=== PATIENT | female | born 1940 ===

== ENCOUNTER 2020-10-03 14:11 | Inpatient (IN) | payer OTHER ==
--- OUTSIDE RECORDS SUMMARY | 2020-10-03 14:14 | XMS REPORT | Continuity of Care Document ---
:1940 Author Organization [facility] t Address [address] [place] [address] Care Team Providers Name Role Phone Delvin SULLIVAN Attending Clinician Jena Melchor MD Attending Clinician Doctor Unassigned, Name Attending Clinician Unavailable Problems This patient has no known problems. Allergies, Adverse Reactions, Alerts This patient has no known allergies or adverse reactions. Medications This patient has no known medications. Procedures This patient has no known procedures. Encounters Start End Encounter Admission Attending Care Care Encounter Source Date/Time Date/Time Type Type Clinicians Facility Department ID 2020-09-10 2020-09-10 Refill COLLEEN Hargrove [id number] 00:00:00 00:00:00 Sloane Garcia [id number] [place] [id number] Profjanie [id number] [address] 2020-09-06 2020-09-06 Refill COLLEEN Melchor [id number] 00:00:00 00:00:00 Kalani Garcia [id number] [place] [id number] Profjanie [id number] [address] 2020-08-20 2020-08-20 Orders Doctor TABOR [id number] 00:00:00 00:00:00 Only Unassigned, JODIE [id number] [place] [facility] [id number] 2020-08-12 2020-08-12 Orders Doctor LEANDER [id number] 00:00:00 00:00:00 Only Unassigned, JODIE [id number] [place] [facility] [id number] 2020-07-30 2020-07-30 Office COLLEEN Melchor [id number] 14:08:15 15:33:36 Visit Kalani Garcia [id number] [place] [id number] [place] [id number] [address] Results This patient has no known results.
[2020-10-03 15:49] LABS: Protime INR 1.24
--- NOTE | 2020-10-03 16:06 | RAD REPORT ---
EXAM DESCRIPTION: RAD - Chest Single View - 10/03/2020 3:56 pm CLINICAL HISTORY: DYSPNEA Chest pain. COMPARISON: CT-RAD THERAPY FLD PLACE-CHEST dated 06/18/2020; Hip Left 2 View dated 07/23/2020; Rad Thera py Fld Place Chest dated 11/20/2015; Rad Therapy Fld Place Chest dated 10/10/2015 FINDINGS: Portable technique limits examination quality. Asymmetric pulmonary opacities are present, greater on the right. This may represent pulmonary infect ion. The heart is normal in size. Several small lucent bone lesions present.
[2020-10-03 16:37] LABS: Absolute Lymphocytes (CBC) 0.5 K/uL (0.7-4.9); Basophils % 0.8 % (0-1.3); Hematocrit 31.9 % (36.0-45.0); Lymphocytes % 6.8 % (15.3-44.8); RBC Red Blood Cell Count 3.32 M/uL (3.86-4.86)
[2020-10-03 16:40] LABS: Albumin 2.7 g/dL (3.4-5.0); Alkaline Phosphatase 158 U/L (45-117); BUN Blood Urea Nitrogen 15 mg/dL (7-18); Bicarbonate 21 mmol/L (21-32); Bilirubin Direct 0.2 mg/dL (0-0.2); Bilirubin Total 0.6 mg/dL (0.2-1.0); Ferritin 468.2 ng/mL (8-388); Glucose Level 119 mg/dL (74-106); Magnesium 2.2 mg/dL (1.8-2.4); NT PRO-BNP 630 pg/mL (<450); Potassium 3.8 mmol/L (3.5-5.1); Protein, Total 7.7 g/dL (6.4-8.2); Sodium Level 134 mmol/L (136-145); Troponin (Emerg Dept Use Only) < 0.02 ng/mL (0.0-0.045)
[2020-10-03 16:46] LABS: ALT/SGPT 325 U/L (12-78); AST/SGOT 438 U/L (15-37)
--- NOTE | 2020-10-03 17:08 | RAD REPORT ---
EXAM DESCRIPTION: US - Extrem Venous W Compress Wilver - 10/03/2020 5:01 pm CLINICAL HISTORY: SWELLING Bilateral leg edema and swelling. COMPARISON: No comparisons TECHNIQUE: Real-time sonographic interrogation of the left and right lower extremity deep venous sys tems was performed. FINDINGS: Normal compressibility, flow augmentation, phasic flow and spontaneous flow is identified in both the left and right lower extremity deep venous systems. IMPRESSION: No sonographic evidence of left or right lower extremity deep venous thrombosis.
--- NOTE | 2020-10-03 17:29 | RAD REPORT ---
EXAM DESCRIPTION: CT - Chest For Pe Angio - 10/03/2020 5:17 pm CLINICAL HISTORY: Chest pain. SOB COMPARISON: CT-RAD THERAPY FLD PLACE-CHEST dated 06/18/2020 TECHNIQUE: CT angiogram of the pulmonary arteries was performed with MIP. All CT scans are performed using dose optimization technique as appropriate and may include automated exposure control or mA/KV adjustment according to patient size. FINDINGS: No evidence of pulmonary thromboembolism. No acute aortic finding demonstrated. There is extensive alveolar pulmonary infiltrate present, greater on the right, suspicious for underl jorge COVID-19 infection. No significant pericardial or pleural fluid. Multiple bone lesions are present scattered throughout the osseous skeleton compatible with bony meta static disease. Significant pathologic compression deformities are seen lower thoracic spine. IMPRESSION: No evidence of pulmonary thromboembolism. Extensive findings suspicious for COVID-19 infection are present, more severe on the right.
--- NOTE | 2020-10-03 17:34 | RAD REPORT ---
EXAM DESCRIPTION: CTAbdomen Pelvis W Contrast - 10/03/2020 5:18 pm CLINICAL HISTORY: Abdominal pain. elevated liver enzymes COMPARISON: Chest For Pe Angio dated 10/03/2020; CT-RAD THERAPY FLD PLACE-CHEST dated 06/18/2020; Rad T herapy Fld Place Chest dated 11/20/2015; Rad Therapy Fld Place Chest dated 10/10/2015 TECHNIQUE: Biphasic CT imaging of the abdomen and pelvis was performed with 100 ml non-ionic IV cont rast. All CT scans are performed using dose optimization technique as appropriate and may include automated exposure control or mA/KV adjustment according to patient size. FINDINGS: Extensive basilar lung opacities are present, greater on the right which are suspicious fo r lung infection. Several small low-density hepatic lesions are present particularly in the right lobe of the liver, th e largest measuring 13 mm. No intra or extrahepatic biliary tree dilatation. The spleen, pancreas, ad renal glands and kidneys are within normal limits. No bowel obstruction, free air, free fluid or abscess. Prominent sigmoid diverticulosis coli is pres ent without diverticulitis. No evidence of significant lymphadenopathy. Extensive bony metastatic disease again seen. Pathologic compression deformities affect the thoracolu mbar junction, with particularly notable high-grade fracture T12 resulting in moderate central canal stenosis. IMPRESSION: Several small low-density liver lesions are present which are nonspecific. Recommend fol low-up MRI liver protocol for further evaluation. Extensive basilar lung opacities, greater on the right, likely representing a significant pulmonary i nfection. Bony metastatic disease is present with pathologic compression fractures at the thoracolumbar junctio n. T12 fracture results in moderately severe canal stenosis. Advanced sigmoid diverticulosis coli without diverticulitis.
--- NOTE | 2020-10-03 18:27 | ER ---
Nurse's Notes [facility] Name: Kathleen Velázquez Age: 80 yrs Sex: Female : 1940 Arrival Date: 10/03/2020 Time: 14:12 Bed 16 Private MD: Diagnosis: Pneumonia due to other specified infectious organisms;Hypoxemia Presentation: 10/03 14:24 Chief complaint: Patient states: Low O2- Sent over from the [place] center. Coronavirus kg screen: Client denies travel out of the [place] in the last 14 days. At this time, unable to obtain information related to travel outside the [place] Coronavirus screen: Client presents with at least one sign or symptom that may indicate coronavirus-19. Standard/surgical mask placed on the client. Provider contacted for isolation considerations. Ebola Screen: Patient negative for fever greater than or equal to 101.5 degrees Fahrenheit, and additional compatible Ebola Virus Disease symptoms Patient denies exposure to infectious person. Patient denies travel to an Ebola-affected area in the 21 days before illness onset. Initial Sepsis Screen: Does the patient meet any 2 criteria? No. Patient's initial sepsis screen is negative. Does the patient have a suspected source of infection? No. Patient's initial sepsis screen is negative. Risk Assessment: Do you want to hurt yourself or someone else? Patient reports no desire to harm self or others. Onset of symptoms was October 03, 2020. 14:24 Method Of Arrival: Wheelchair kg 14:24 Acuity: AWILDA 3 kg Triage Assessment: 14:34 General: Appears in no apparent distress. Behavior is calm, cooperative, appropriate kg for age, quiet. Historical: - Allergies: 14:26 PENICILLINS; kg - Home Meds: 14:26 amlodipine 10 mg tab 1 tab once daily [Active]; levothyroxine 75 mcg tab 1 tab once kg daily [Active]; omeprazole 20 mg Oral cpDR 1 cap once daily [Active]; aspirin 81 mg Oral TbEC 1 tab once daily [Active]; Zyrtec 10 mg Oral cap 10 mg daily [Active]; B12 Active 1,000 mcg oral chew daily [Active]; multivitamin oral cap daily [Active]; calcium carbonate Oral [Active]; Vitamin D Oral [Active]; Probiotic oral [Active]; Flonase 50 mcg/actuation Nasal spsn 1 spray once daily [Active]; sertraline 100 mg oral tab 1 tab once daily [Active]; Ibrance 100 mg oral tab 1 tab once daily [Active]; BuSpar 15 mg Oral tab 1 tab [Active]; Lipitor 20 mg Oral tab 1 tab once daily [Active]; Cozaar 100 mg Oral tab 1 tab [Active]; 14:34 acetaminophen-codeine 300 mg-30 mg /12.5 mL Oral soln [Active]; kg - PMHx: 14:34 thyroid; Hypertensive disorder; Anxiety; Hypercholesterolemia; CA- Breast, bone; kg Depressive disorder; - PSHx: 14:34 Total abdominal hysterectomy; Left hip sx; kg - Immunization history:: Adult Immunizations not up to date, Client reports having NOT received the Covid vaccine. - Social history:: Smoking status: Patient/guardian denies using tobacco, but has a distant history of tobacco abuse. Screenin:00 Abuse screen: Denies threats or abuse. Denies injuries from another. Nutritional tr6 screening: No deficits noted. Tuberculosis screening: No symptoms or risk factors identified. Fall Risk Fall in past 12 months (25 points). Assessment: 14:38 Reassessment: Mariaa Abdullahi Granddaughter is waiting in the car . kg 14:58 General: Appears in no apparent distress. well groomed, Behavior is calm, cooperative, tr6 appropriate for age. Pain: Denies pain. Neuro: No deficits noted. Level of Consciousness is awake, alert, obeys commands, Oriented to person, place, time, situation, Appropriate for age. Cardiovascular: Rhythm is regular. Respiratory: Reports shortness of breath at rest on exertion Airway is patent Respiratory effort is even, unlabored, Respiratory pattern is regular, Breath sounds are clear. GI: No deficits noted. : No deficits noted. EENT: No deficits noted. Derm: No deficits noted. Musculoskeletal: No deficits noted. Vital Signs: 14:24 Resp 20; Pulse Ox 85% on R/A; Weight 63.5 kg (R); Height 5 ft. 0 in. (152.40 cm) (R); kg Pain 0/10; 14:35 Temp 98.3; Pulse Ox 95% on 4 lpm NC; kg 15:09 BP 130 / 67; Pulse 79; Resp 17; Temp 98.2(TE); Pulse Ox 93% on 3 lpm NC; mh5 19:51 BP 118 / 86; Pulse 92; Resp 20; Temp 98.3; Pulse Ox 95% on 2 lpm NC; ch4 14:24 Body Mass Index 27.34 (63.50 kg, 152.40 cm) kg ED Course: 14:12 Patient arrived in ED. ds1 14:26 Triage completed. kg 14:34 Arm band placed on. kg 14:58 Daxa Rojas, RN is Primary Nurse. tr6 15:00 Patient has correct armband on for positive identification. Placed in gown. Bed in low tr6 position. Call light in reach. Side rails up X 1. cardiac monitor on. Pulse ox on. NIBP on. Door closed. Noise minimized. Visitors limited. Lights dimmed. Moved to private room. Warm blanket given. Diet: Patient is NPO. 15:00 No provider procedures requiring assistance completed. Patient maintains SpO2 tr6 saturation greater than 95% on room air. 15:08 Polo Jhaveri PA is PHCP. cp 15:08 Smooth Powell MD is Attending Physician. cp 15:08 Side rails up X2. Warm blanket given. Pillow given. mh5 15:14 Inserted saline lock: 20 gauge in left antecubital area, using aseptic technique. Blood tr6 collected. 15:55 XRAY Chest (1 view) In Process Unspecified. EDMS 17:01 US Extremity Venous W Compression Wilver In Process Unspecified. EDMS 17:18 CT Chest For PE Angio In Process Unspecified. EDMS 17:18 CT Abd/Pelvis - IV Contrast Only In Process Unspecified. EDMS 18:26 Juan Palacios MD is Hospitalizing Provider. cp 20:14 Basic Metabolic Panel Sent. ch4 20:14 CBC with Diff Sent. ch4 20:14 Magnesium Sent. ch4 20:14 LFT's Sent. ch4 20:14 NT PRO-BNP Sent. ch4 20:14 PT-INR Sent. ch4 Administered Medications: 19:39 Drug: LevaQUIN (levofloxacin) 750 mg Volume: 150 ml; Route: IVPB; Infused Over: 90 ch4 mins; Site: right antecubital; 19:39 Drug: NS 0.9% 250 ml Route: IV; Rate: bolus; Site: right antecubital; ch4 19:39 Drug: NS 0.9% 500 ml Route: IV; Rate: 75 ml/hr; Site: right antecubital; ch4 Outcome: 18:27 Decision to Hospitalize by Provider. sd 10/05 20:37 Patient left the ED. wagner Signatures: Dispatcher [employer] EDKY Alondra Sultana ds1 Polo Jhaveri PA PA cp Martinez, Maria [facility] Sonam Herron RN RN Daxa Rojas RN RN 6 Maricruz Mcmanus RN RN Norah Porter RN RN ch4 Corrections: (The following items were deleted from the chart) 10/03 14:42 14:24 Pulse Ox 85% RA; kg kg
--- NOTE | 2020-10-03 18:28 | EDPHYS ---
Physician Documentation [facility] Name: Kathleen Velázquez Age: 80 yrs Sex: Female : 1940 Arrival Date: 10/03/2020 Time: 14:12 Bed 16 Private MD: ED Physician Smooth Powell HPI: 10/03 15:25 This 80 yrs old Unknown Female presents to ER via Wheelchair with complaints of cp Shortness Of Breath. 15:25 The patient has shortness of breath at rest. Onset: The symptoms/episode began/occurred cp gradually. Duration: The symptoms are continuous, and are steadily getting worse. Associated signs and symptoms: Pertinent negatives: chest pain, productive cough, diaphoresis, dizziness, fever, nausea, vomiting. Severity of symptoms: in the emergency department the symptoms have improved mildly. Historical: - Allergies: 14:26 PENICILLINS; kg - Home Meds: 14:26 amlodipine 10 mg tab 1 tab once daily [Active]; levothyroxine 75 mcg tab 1 tab once kg daily [Active]; omeprazole 20 mg Oral cpDR 1 cap once daily [Active]; aspirin 81 mg Oral TbEC 1 tab once daily [Active]; Zyrtec 10 mg Oral cap 10 mg daily [Active]; B12 Active 1,000 mcg oral chew daily [Active]; multivitamin oral cap daily [Active]; calcium carbonate Oral [Active]; Vitamin D Oral [Active]; Probiotic oral [Active]; Flonase 50 mcg/actuation Nasal spsn 1 spray once daily [Active]; sertraline 100 mg oral tab 1 tab once daily [Active]; Ibrance 100 mg oral tab 1 tab once daily [Active]; BuSpar 15 mg Oral tab 1 tab [Active]; Lipitor 20 mg Oral tab 1 tab once daily [Active]; Cozaar 100 mg Oral tab 1 tab [Active]; 14:34 acetaminophen-codeine 300 mg-30 mg /12.5 mL Oral soln [Active]; kg - PMHx: 14:34 thyroid; Hypertensive disorder; Anxiety; Hypercholesterolemia; CA- Breast, bone; kg Depressive disorder; - PSHx: 14:34 Total abdominal hysterectomy; Left hip sx; kg - Immunization history:: Adult Immunizations not up to date, Client reports having NOT received the Covid vaccine. - Social history:: Smoking status: Patient/guardian denies using tobacco, but has a distant history of tobacco abuse. ROS: 15:30 Constitutional: Negative for body aches, chills, fever, poor PO intake. cp 15:30 Eyes: Negative for injury, pain, redness, and discharge. cp 15:30 ENT: Negative for ear pain, sore throat, difficulty swallowing, difficulty handling secretions. 15:30 Cardiovascular: Negative for chest pain, edema, palpitations. 15:30 Respiratory: Positive for shortness of breath, at rest. Negative for cough, wheezing. 15:30 Abdomen/GI: Negative for abdominal pain, nausea, vomiting, and diarrhea, black/tarry stool, rectal bleeding. 15:30 Skin: Negative for rash. 15:30 Neuro: Negative for dizziness, headache, numbness, syncope, weakness. 15:30 All other systems are negative. Exam: 15:33 Constitutional: The patient appears in no acute distress, alert, awake, cp non-diaphoretic, non-toxic, well developed, well nourished. 15:33 Head/Face: Normocephalic, atraumatic. cp 15:33 Eyes: Periorbital structures: appear normal, Conjunctiva: normal, no exudate, no injection, Sclera: no appreciated abnormality, Lids and lashes: appear normal, bilaterally. 15:33 ENT: External ear(s): are unremarkable, Nose: is normal, Mouth: Lips: moist, Oral mucosa: pink and intact, moist, Posterior pharynx: Airway: no evidence of obstruction, patent. 15:33 Neck: ROM/movement: is normal, is supple, without pain, no range of motions limitations, no meningismus. 15:33 Chest/axilla: Inspection: normal, Palpation: is normal, no crepitus, no tenderness. 15:33 Cardiovascular: Rate: normal, Rhythm: regular, Edema: is not appreciated, JVD: is not appreciated. 15:33 Respiratory: the patient does not display signs of respiratory distress, Respirations: normal, no use of accessory muscles, no retractions, labored breathing, is not present, Breath sounds: decreased breath sounds, are not appreciated, stridor, is not appreciated. 15:33 Abdomen/GI: Inspection: abdomen appears normal, Palpation: abdomen is soft and non-tender, in all quadrants. 15:33 Back: pain, is absent, ROM is normal. 15:33 Neuro: Orientation: to person, situation, Mentation: able to follow commands, Motor: moves all fours, strength is normal. 16:35 ECG was reviewed by the Attending Physician. cp Vital Signs: 14:24 Resp 20; Pulse Ox 85% on R/A; Weight 63.5 kg (R); Height 5 ft. 0 in. (152.40 cm) (R); kg Pain 0/10; 14:35 Temp 98.3; Pulse Ox 95% on 4 lpm NC; kg 15:09 BP 130 / 67; Pulse 79; Resp 17; Temp 98.2(TE); Pulse Ox 93% on 3 lpm NC; mh5 19:51 BP 118 / 86; Pulse 92; Resp 20; Temp 98.3; Pulse Ox 95% on 2 lpm NC; ch4 14:24 Body Mass Index 27.34 (63.50 kg, 152.40 cm) kg MDM: 15:17 Patient medically screened. cp 16:00 Differential diagnosis: Bronchitis CHF exacerbation, Chronic Obstructive Pulmonary cp Disease pneumonia, Pneumothorax pulmonary edema, Pulmonary Embolism Sepsis Unstable Angina. 18:10 Data reviewed: vital signs, nurses notes, lab test result(s), EKG, radiologic studies, cp CT scan, plain films. 18:10 Test interpretation: by ED physician or midlevel provider: ECG, plain radiologic cp studies. 18:20 Counseling: I had a detailed discussion with the patient and/or guardian regarding: the cp historical points, exam findings, and any diagnostic results supporting the discharge/admit diagnosis, lab results, radiology results, the need for further work-up and treatment in the hospital. 18:20 Physician consultation: Roc BUCHANAN was contacted at 18:20, regarding admission, cp to the telemetry unit. patient's condition. 10/03 15:17 Order name: Basic Metabolic Panel cp 10/03 15:17 Order name: CBC with Diff cp 10/03 15:17 Order name: LFT's cp 10/03 15:17 Order name: Magnesium cp 10/03 15:17 Order name: NT PRO-BNP cp 10/03 15:17 Order name: PT-INR cp 10/03 15:17 Order name: Troponin (emerg Dept Use Only); Complete Time: 16:56 cp 10/03 15:17 Order name: Influenza Screen (a \\T\\ B); Complete Time: 16:23 cp 10/03 15:17 Order name: Urine Microscopic Only 10/03 15:17 Order name: CRP; Complete Time: 16:56 cp 10/03 16:56 Interpretation: Abnormal: C-REACTIVE PROT 169.00. cp 10/03 15:17 Order name: Ferritin; Complete Time: 16:56 cp 10/03 15:17 Order name: D-Dimer; Complete Time: 20:10 cp 10/03 16:01 Interpretation: Abnormal: D-DIMER 2486. 10/03 15:18 Order name: Basic Metabolic Panel; Complete Time: 16:56 EDMS 10/03 16:56 Interpretation: Normal except: NA 134; GLUC 119; GFR 73. 10/03 15:18 Order name: CBC with Automated Diff EDMS 10/03 16:42 Interpretation: Normal except: RBC 3.32; HGB 10.6; HCT 31.9; RDW 17.7; NILS% 89.7; LYM% cp 6.8; MN% 2.3; LYMA 0.5. 10/03 15:18 Order name: Liver (Hepatic) Function; Complete Time: 16:56 EDMS 10/03 15:18 Order name: Magnesium; Complete Time: 16:56 EDMS 10/03 15:18 Order name: NT PRO-BNP; Complete Time: 16:56 EDMS 10/03 15:18 Order name: Protime (+INR); Complete Time: 20:10 EDMS 10/03 17:34 Order name: SARS-COV-2 RT PCR; Complete Time: 18:01 EDMS 10/03 18:04 Order name: Blood Culture Adult (2) 10/03 18:04 Order name: Procalcitonin 10/03 18:04 Order name: Lactate 10/03 18:08 Order name: ABG; Complete Time: 20:10 ld1 10/03 20:09 Order name: CBC Smear Scan EDMS 10/04 03:40 Order name: CBC with Automated Diff EDMS 10/04 04:02 Order name: Comprehensive Metabolic Panel EDMS 10/04 04:02 Order name: Lipid Profile EDMS 10/04 04:02 Order name: T4 Free EDMS 10/04 04:02 Order name: Magnesium EDMS 10/03 14:41 Order name: XRAY Chest (1 view); Complete Time: 16:23 rn 10/03 16:23 Interpretation: Report reviewed. cp 10/03 15:17 Order name: EKG; Complete Time: 15:18 cp 10/03 15:17 Order name: Cardiac monitoring; Complete Time: 16:52 cp 10/03 15:17 Order name: EKG - Nurse/Tech; Complete Time: 16:52 cp 10/03 15:17 Order name: IV Saline Lock; Complete Time: 16:05 cp 10/03 15:17 Order name: Labs collected and sent; Complete Time: 16:05 cp 10/03 15:17 Order name: O2 Per Protocol; Complete Time: 16:05 cp 10/03 15:17 Order name: O2 Sat Monitoring; Complete Time: 16:05 cp 10/03 15:17 Order name: Urine Dipstick-Ancillary (obtain specimen); Complete Time: 20:14 cp 10/03 16:02 Order name: CT Chest For PE Angio; Complete Time: 18:01 cp 10/03 18:01 Interpretation: Report reviewed. 10/03 16:02 Order name: US Extremity Venous W Compression Wilver; Complete Time: 18:01 cp 10/03 16:57 Order name: CT Abd/Pelvis - IV Contrast Only; Complete Time: 18:01 cp 10/04 04:02 Order name: Thyroid Stimulating Hormone EDMS 10/04 08:58 Order name: US EDMS 10/04 20:37 Order name: Urine Dipstick-Ancillary EDMS 10/04 20:46 Order name: COVID-19 : Document "Date of Symptom Onset" if Symptomatic. tt3 10/04 20:56 Order name: CORONAVIRUS EDMS 10/04 21:49 Order name: SARS-COV-2 RT PCR EDMS 10/05 05:28 Order name: ABG Arterial Blood Gas EDMS 10/05 06:10 Order name: CBC with Automated Diff EDMS 10/05 08:10 Order name: C-Reactive Protein EDMS 10/05 08:39 Order name: Comprehensive Metabolic Panel EDMS 10/05 08:39 Order name: Magnesium EDMS 10/05 09:12 Order name: RAD EDMS 10/05 09:26 Order name: Procalcitonin EDMS 10/05 13:11 Order name: Lactate EDMS EC:35 Rate is 83 beats/min. Rhythm is regular. RI interval is normal. QRS interval is normal. cp QT interval is normal. T waves are Inverted in leads aVL, aVR. Interpreted by me. Reviewed by me. Administered Medications: 19:39 Drug: LevaQUIN (levofloxacin) 750 mg Volume: 150 ml; Route: IVPB; Infused Over: 90 ch4 mins; Site: right antecubital; 19:39 Drug: NS 0.9% 250 ml Route: IV; Rate: bolus; Site: right antecubital; ch4 19:39 Drug: NS 0.9% 500 ml Route: IV; Rate: 75 ml/hr; Site: right antecubital; ch4 Disposition Summary: 10/03/20 18:27 Hospitalization Ordered Hospitalization Status: Inpatient Admission cp Provider: Juan Palacios cp Condition: Stable cp Problem: new cp Symptoms: have improved cp Bed/Room Type: Standard cp Location: Telemetry/MedSurg (Inpatient)(10/05/20 18:12) [facility] Room Assignment: [facility](10/05/20 18:12) [facility] Diagnosis - Pneumonia due to other specified infectious organisms cp - Hypoxemia cp Forms: - Medication Reconciliation Form cp - SBAR form cp Addendum: 10/07/2020 07:02 Co-signature as Attending Physician, Smooth Powell MD I agree with the assessment and r n plan of care. Attestation: The patient's history, exam findings, diagnostics, and a summary of any interventions or procedures was reviewed in detail with Polo MIRELES. Signatures: Dispatcher [employer] [facility] Smooth Powell MD MD rn Page, Corey, PA PA Rebecca Prescott, ELOISA AMIN Jet Garnica RN RN ja Maricruz Mcmanus RN RN Norah Porter, RN RN ch4 Corrections: (The following items were deleted from the chart) 10/03 16:38 15:18 CORONAVIRUS+MR.LAB.BRZ ordered. [facility] 18:27 18:27 Altered mental status, unspecified cp cp 10/04 03:05 10/03 18:27 Telemetry/MedSurg (Inpatient) formerly [facility] 10/04 03:05 10/03 18:27 formerly [facility] 10/04 09:37 03:05 [facility] ER HOLD cg ja1 09:37 03:05 ERHOLD- cg ja1 10:14 09:37 Telemetry/MedSurg (Inpatient) ja1 ja1 10:14 09:37 214 ja1 ja1 19:29 10:14 ja1 cg 10/05 12:01 08 10:14 [facility] ER HOLD ja1 ja1 10/05 12:01 08 19:29 ERHOLD- cg ja1 10/05 12:30 12:01 Telemetry/MedSurg (Inpatient) ja1 ja1 12:30 12:01 206 ja1 ja1 18:12 12:30 [facility] ER HOLD ja1 ja1 18:12 12:30 ja1 ja1
[2020-10-03 18:35] LABS: Arterial Blood Carboxyhemoglob 1.9 % (0-1.5); Blood O2 Saturation 84.2 % (92-98.5)
--- NOTE | 2020-10-03 19:06 | P.HP ---
Certification for Inpatient Patient admitted to: Inpatient With expected LOS: >2 Midnights Patient will require the following post-hospital care: None Practitioner: I am a practitioner with admitting privileges, knowledge of patient current condition, hospital course, and medical plan of care. Services: Services provided to patient in accordance with Admission requirements found in Title 42 Section 412.3 of the Code of Federal Regulations <Roc Thorne - Last Filed: 10/03/20 19:00> Patient History Date of Service: 10/03/20 Primary Care Provider: Dr. Melchor, Dr. Manzanares Reason for admission: pneumonia, hypoxia History of Present Illness: 80-year-old female with history of breast cancer with metastasis to liver/bile duct/bone, hypothyroidism, hyperlipidemia, depression presents emerged department for shortness of breath, hypoxia. Patient presented to her oncologist for radiation therapy and was noted to be hypoxic upon arrival. Patient was sent to the ER for evaluation. Patient was evaluated in the emergency department labs were significant for white blood cell count 7 hemoglobin 10.6 medical 31.9 D-dimer 2486 sodium 134 GFR 73 glucose 119 ferritin 468.2 AST 438 ALT 325 alk phos 158 C-reactive protein 169 BNP 630 Covid test negative. Chest x-ray demonstrated asymmetric pulmonary opacities greater on the right, CTA chest with extensive finding suspicious for COVID-19 greater on the right no sign of PE CT abdomen pelvis with several small low-density liver l esions present which are nonspecific recommend follow-up MRI liver protocol for further evaluation, bony metastatic disease present with pathological compression fractures at the thoracolumbar junction T12 fracture resulting in moderate severity canal stenosis, family/patient aware of this previously. ED (admit for further evaluation of hypoxia, pneumonia. - Past Medical/Surgical History Diabetic: No -: Stage IV breast cancer mets to liver, bone -: Hypothyroidism -: Hyperlipidemia -: Depression -: Hysterectomy -: Left hip surgery Psychosocial/ Personal History: Patient lives at home with her , retired - Family History Father -: Heart disease - Social History Smoking Status: Former smoker Alcohol use: No CD- Drugs: No Caffeine use: Yes Place of Residence: Home <Roc Thorne - Last Filed: 10/03/20 19:00> Date of Service: 10/03/20 <Nikunj Carpenter - Last Filed: 10/15/20 06:36> Review of Systems 10-point ROS is otherwise unremarkable General: Other (Anxious) Respiratory: Cough, Shortness of Breath <Roc Thorne - Last Filed: 10/03/20 19:00> Physical Examination - Physical Exam General: Alert, In no apparent distress, Oriented x2 HEENT: Atraumatic, PERRLA, Other (Mucous membranes dry), EOMI, Sclerae nonicteric Neck: Supple, 2+ carotid pulse no bruit, No LAD, Without JVD or thyroid abnormality Respiratory: Clear to auscultation bilaterally, Normal air movement Cardiovascular: Regular rate/rhythm, Normal S1 S2 Gastrointestinal: Normal bowel sounds, No tenderness Musculoskeletal: No tenderness Integumentary: No rashes Neurological: Normal speech, Normal strength at 5/5 x4 extr, Normal tone, Normal affect Lymphatics: No axilla or inguinal lymphadenopathy - Studies Laboratory Data (last 24 hrs) 10/03/20 15:27: PT 14.3 H, INR 1.24 10/03/20 15:27: WBC 7.00, Hgb 10.6 L, Hct 31.9 L, Plt Count 395 10/03/20 15:27: Sodium 134 L, Potassium 3.8, BUN 15, Creatinine 0.76, Glucose 119 H, Magnesium 2.2, Total Bilirubin 0.6, AST 438 H*, ALT 325 H*, Alkaline Phosphatase 158 H Microbiology Data (last 24 hrs): 10/03/20 15:32 Nasopharnyx Influenza Type A Antigen Screen - Final 10/03/20 15:32 Nasopharnyx Influenza Type B Antigen Screen - Final <Roc Thorne - Last Filed: 10/03/20 19:00> Assessment and Plan - Plan Assessment: Dyspnea, hypoxia secondary to bilateral pneumonia History of breast cancer with metastasis to bone, liver/biliary tract with elevated LFTs Hypothyroidism Hyperlipidemia Plan: Dyspnea, hypoxia secondary to bilateral pneumonia: With blood cell count normal CRP significantly elevated CT chest radiology interprets as findings consistent with Covid pneumonia, Covid test negative at this time. Patient with oxygen requirement. Will treat with IV antibioticsLevaquin at this time. May want to consider repeating Covid test at some point. DVT prophylaxis with Lovenox. Incentive spirometry, supplemental oxygen as needed. Patient extremely anxious will provide medication as needed. Daughter phone number [phone] available to help console mother. History of breast cancer with metastasis to bone, liver/biliary tract with elevated LFTs: CT abdomen pelvis demonstrates malignancy of the liver, this is previously known, no acute findings. Hypothyroidism: Thyroid panel morning labs, continue medications adjust as necessary Hyperlipidemia: Continue medications. DVT PPX: Lovenox Code status: Full Discharge Plan: Home Plan to discharge in: Greater than 2 days - Advance Directives Does patient have a Living Will: No Does patient have a Durable POA for Healthcare: No - Code Status/Comfort Care Code Status Assessed: Yes (Full code) Critical Care: No Time Spent Managing Pts Care (In Minutes): 55 <Roc Thorne - Last Filed: 10/03/20 19:00> - Problems (Diagnosis) (1) Respiratory failure with hypoxia Status: Acute Qualifiers: Chronicity: acute Qualified Code(s): J96.01 - Acute respiratory failure with hypoxia (2) Pneumonia, bacterial Status: Acute (3) Metastatic breast cancer Status: Acute <Nikunj Carpenter - Last Filed: 10/15/20 06:36> Date of Service: 10/03/20 Subjective Agree with plan of care as mentioned above. Review of Systems 10-point ROS is otherwise unremarkable Physical Examination - Vital Signs Reviewed - Physical Exam General: Alert, In no apparent distress, Oriented x3 Respiratory: Diminished, Crackles/rales Cardiovascular: Regular rate/rhythm, Normal S1 S2, No murmurs Gastrointestinal: Normal bowel sounds, Soft and benign, Non-distended, No tenderness Musculoskeletal: No clubbing, No swelling, No tenderness Neurological: Cranial nerves 3-12 intact Assessment & Plan - Problems (Diagnosis) (1) Respiratory failure with hypoxia Current Visit: Yes Status: Acute Qualifiers: Chronicity: acute Qualified Code(s): J96.01 - Acute respiratory failure with hypoxia (2) Pneumonia, bacterial Current Visit: Yes Status: Acute (3) Metastatic breast cancer Current Visit: Yes Status: Acute - Plan Plan of care as mentioned below: 1. Continue with IV antibiotics and IV steroids 2. Awaiting sputum and blood culture 3. Repeat chest x-ray 4. CT reveals metastatic disease to the liver and bones. 5. Oncology consultation 6. Continue with nebs as needed 7. O2 per protocol 8. Continue with gentle hydration 9. Repeat labs including CBC and renal function in a.m. 10. GI and DVT prophylaxis <Nikunj Carpenter - Last Filed: 10/15/20 06:36>
[2020-10-03] MEDS ORDERED: Levofloxacin 750mg IV 750 MG/150 ML BAG IV ONE (20:02)
[2020-10-03] MEDS ORDERED: NA CHLORIDE 0.9% 500 ML ONE (20:02)
[2020-10-03 20:09] LABS: Anisocytosis SLIGHT; Blood Morphology Comment NOTED (NOT SEEN); Platelet Estimate ADEQ; White Blood Cell Scan OK (OK)
[2020-10-03] MEDS: NA CHLORIDE 0.9% 1,000 ML IV SCH (21:24)
[2020-10-03] MEDS: ATORVASTATIN 20 MG TAB PO SCH (21:24)
[2020-10-03] MEDS ORDERED: ONDANSETRON 4 MG/2 ML VIAL IV PRN (21:24)
[2020-10-03] MEDS ORDERED: Levofloxacin500mg IV 500 MG/100 ML BAG IV SCH (21:24)
[2020-10-03] MEDS ORDERED: FLUTICASONE 50MCG NASAL SPRAY NAS PRN (21:24)
[2020-10-03] MEDS: BUSPIRONE HCL 5 MG TABLET PO SCH (21:24)
[2020-10-03] MEDS: SERTRALINE HCL 100 MG TAB PO SCH (21:24)
[2020-10-03] MEDS ORDERED: ACETAMINOPHEN 500 MG TAB PO PRN (21:24)
[2020-10-03] MEDS ORDERED: CODEINE 30MG/APAP 300MG TAB PO PRN (21:24)
[2020-10-03] MEDS: LORazepam 2 MG/ML VIAL IV PRN (21:35)
[2020-10-03] MEDS ORDERED: lisinopriL 20 MG TAB ONE (21:56)
[2020-10-03] MEDS ORDERED: LORazepam 2 MG/ML VIAL ONE (21:56)
[2020-10-03] MEDS ORDERED: CODEINE 30MG/APAP 300MG TAB ONE (21:56)
[2020-10-03] MEDS ORDERED: SERTRALINE HCL 100 MG TAB ONE (22:55)
[2020-10-03] MEDS ORDERED: BUSPIRONE HCL 5 MG TABLET ONE (22:55)
[2020-10-04 03:27] LABS: Absolute Lymphocytes (CBC) 0.2 K/uL (0.7-4.9); Basophils % 0.4 % (0-1.3); Hematocrit 27.4 % (36.0-45.0); Lymphocytes % 4.9 % (15.3-44.8); MPV 8.3 fL (7.6-11.3); RBC Red Blood Cell Count 2.88 M/uL (3.86-4.86)
[2020-10-04 04:01] LABS: ALT/SGPT 298 U/L (12-78); AST/SGOT 333 U/L (15-37); Albumin 2.2 g/dL (3.4-5.0); Alkaline Phosphatase 145 U/L (45-117); BUN Blood Urea Nitrogen 13 mg/dL (7-18); Bicarbonate 20 mmol/L (21-32); Bilirubin Total 0.6 mg/dL (0.2-1.0); Glucose Level 111 mg/dL (74-106); HDL Cholesterol 37 mg/dL (40-60); LDL Cholesterol, Calculated 68 (<130); Potassium 3.7 mmol/L (3.5-5.1); Protein, Total 6.6 g/dL (6.4-8.2); Sodium Level 134 mmol/L (136-145)
--- NOTE | 2020-10-04 08:58 | RAD REPORT ---
EXAM DESCRIPTION: US - Abdomen Exam Limited - 10/04/2020 12:39 am CLINICAL HISTORY: eval liver/gallbladder COMPARISON: Abdomen Pelvis W Contrast dated 10/03/2020 FINDINGS: Gallbladder size is normal. No gallstones, wall thickening or pericholecystic fluid. Commo n bile duct is normal with no common duct stone identified. Liver is 15 cm with no focal liver parenchymal lesion and no liver capsule nodularity. Echogenicity o f the liver parenchyma is increased. Doppler evaluation shows no portal vein abnormality. No ascites in the right upper quadrant. IMPRESSION: Normal size liver showing no focal liver parenchymal lesion. Parenchymal echogenicity is borderline for fatty infiltration. No gallbladder or biliary tree abnormality.
[2020-10-04] MEDS: ENOXAPARIN 40 MG/0.4 ML SQ SCH (09:00)
[2020-10-04] MEDS: LOSARTAN POTASSIUM 50 MG TABLET PO SCH (09:00)
--- NOTE | 2020-10-04 09:19 | P.PN ---
Subjective Date of Service: 10/04/20 Primary Care Provider: Dr. Melchor, Dr. Manzanares Chief Complaint: pneumonia, hypoxia Subjective: No C/O voiced, Improving Physical Examination - Vital Signs Temperature: 98.8 F Blood Pressure: 124/58 Pulse: 91 Respirations: 23 Pulse Ox (%): 93 - Physical Exam General: Alert, Oriented x3 HEENT: Atraumatic, Normocephalic Neck: Supple Respiratory: Normal air movement, Diminished Cardiovascular: Regular rate/rhythm, Normal S1 S2 Gastrointestinal: Soft and benign - Studies Laboratory Data (last 24 hrs) 10/03/20 15:27: PT 14.3 H, INR 1.24 10/03/20 15:27: WBC 7.00, Hgb 10.6 L, Hct 31.9 L, Plt Count 395 10/03/20 15:27: Sodium 134 L, Potassium 3.8, BUN 15, Creatinine 0.76, Glucose 119 H, Magnesium 2.2, Total Bilirubin 0.6, AST 438 H*, ALT 325 H*, Alkaline Phosphatase 158 H Microbiology Data (last 24 hrs): 10/03/20 15:32 Nasopharnyx Influenza Type A Antigen Screen - Final 10/03/20 15:32 Nasopharnyx Influenza Type B Antigen Screen - Final Assessment And Plan - Plan Pneumonia: improving clinical parameters. we will continue levaquin therapy. we will monitor cultures closely. Breast cancer: We will continue routine care as per oncology. Hypoxia: deemed due to pneumonia episode. we will continue supplemental oxygen and wean off as tolerated. Discharge Plan: Home - Code Status/Comfort Care Code Status: Full Code
[2020-10-04] MEDS ORDERED: ENOXAPARIN 40 MG/0.4 ML SQ ONE (09:30)
[2020-10-04] MEDS ORDERED: NA CHLORIDE 0.9% 1,000 ML ONE ×2 (09:30→14:45)
[2020-10-04] MEDS ORDERED: LORazepam 2 MG/ML VIAL ONE (10:14)
[2020-10-04] MEDS: NA CHLORIDE 0.9% 1,000 ML IV SCH (10:44)
--- NOTE | 2020-10-04 11:10 | EKG ---
Test Date: 2020-10-03 Test Time: 16:27:25 Sales Trader: SHADI MEASUREMENT RESULTS: Intervals: Rate: 83 MA: 152 QRSD: 72 QT: 354 QTc: 415 [place]: P: 53 MA: 152 QRS: -2 T: 77 INTERPRETIVE STATEMENTS: Normal sinus rhythm Cannot rule out Anterior infarct, age undetermined Abnormal ECG No previous ECG available for comparison Electronically Signed On 10-04-20 11:07:42 CDT by Castro Gentile
[2020-10-04 12:26] VITALS: BMI 23.3
[2020-10-04] MEDS: LEVOFLOXACIN 750MG/D5W 150 ML IV SCH (20:00)
[2020-10-04 20:37] LABS: Urine Blood 1+ (Negative); Urine Glucose Negative (Negative); Urine Protein 1+ (Negative); Urine Specific Gravity 1.015 (1.005-1.030)
[2020-10-04] MEDS ORDERED: ATORVASTATIN 20 MG TAB ONE (20:41)
[2020-10-04] MEDS ORDERED: Levofloxacin 750mg IV 750 MG/150 ML BAG IV ONE (20:41)
[2020-10-04] MEDS: BUSPIRONE HCL 5 MG TABLET PO SCH (20:52)
[2020-10-04] MEDS: ATORVASTATIN 20 MG TAB PO SCH (20:52)
[2020-10-04] MEDS: SERTRALINE HCL 100 MG TAB PO SCH (20:53)
[2020-10-04] MEDS ORDERED: ACETAMINOPHEN 500 MG TAB ONE (21:01)
[2020-10-05] MEDS: NA CHLORIDE 0.9% 1,000 ML IV SCH (00:04)
[2020-10-05] MEDS ORDERED: HALOPERIDOL LACT 5 MG/ML INJ IV ONE (04:52)
[2020-10-05] MEDS ORDERED: HALOPERIDOL LACT 5 MG/ML INJ ONE ×2 (05:10→12:24)
[2020-10-05 05:28] LABS: Arterial Blood Carboxyhemoglob 1.3 % (0-1.5); Blood Gas Oxyhemoglobin 86.7 % (94-97); Blood O2 Saturation 88.7 % (92-98.5)
[2020-10-05] MEDS ORDERED: VANCOMYCIN/NS 1 gm 1 GM/250 ML BAG IVPB SCH (05:45)
[2020-10-05 05:56] LABS: Absolute Lymphocytes (CBC) 0.4 K/uL (0.7-4.9); Basophils % 0.2 % (0-1.3); Lymphocytes % 5.2 % (15.3-44.8); MPV 8.9 fL (7.6-11.3); RBC Red Blood Cell Count 3.11 M/uL (3.86-4.86)
[2020-10-05] MEDS: LORazepam 2 MG/ML VIAL IV PRN ×3 (06:00→22:03)
[2020-10-05] MEDS ORDERED: VANCOMYCIN 1.25 GM in NA CHLORIDE 0.9% 250 ML IVPB SCH ×2 (06:00→18:00)
[2020-10-05] MEDS ORDERED: LORazepam 2 MG/ML VIAL ONE ×3 (06:12→17:38)
[2020-10-05] MEDS ORDERED: ALBUMIN HUMAN 25% 100 ML IV ONE (08:25)
[2020-10-05 08:35] LABS: Albumin 2.4 g/dL (3.4-5.0); Bilirubin Total 0.9 mg/dL (0.2-1.0); Magnesium 2.1 mg/dL (1.8-2.4); Protein, Total 7.5 g/dL (6.4-8.2)
[2020-10-05] MEDS: LOSARTAN POTASSIUM 50 MG TABLET PO SCH (09:00)
[2020-10-05] MEDS: ENOXAPARIN 40 MG/0.4 ML SQ SCH (09:00)
--- NOTE | 2020-10-05 09:12 | RAD REPORT ---
EXAM DESCRIPTION: Martha Single View10/05/2020 8:53 am CLINICAL HISTORY: Shortness of breath COMPARISON: October 03, 2020 FINDINGS: Mild worsening diffuse bilateral pulmonary opacities. Heart is normal size. Diffuse skeletal metastatic disease IMPRESSION: Mild worsening in diffuse bilateral pulmonary opacities. This may indicate pneumonia
[2020-10-05] MEDS ORDERED: ALBUMIN HUMAN 25% 50 ML IV ONE (09:20)
[2020-10-05] MEDS ORDERED: ENOXAPARIN 40 MG/0.4 ML SQ ONE (09:20)
[2020-10-05] MEDS ORDERED: HALOPERIDOL LACT 5 MG/ML INJ IV STA (11:17)
--- NOTE | 2020-10-05 11:33 | P.PN ---
Subjective Date of Service: 10/05/20 Patient is still with dyspnea; spoke with family regarding her current clinical status. They do want everything performed. Continue with antibiotic therapy. Review of Systems 10-point ROS is otherwise unremarkable Physical Examination - Vital Signs Temperature: 98.4 F Blood Pressure: 109/63 Pulse: 86 Respirations: 34 Pulse Ox (%): 96 - Physical Exam General: Alert, In no apparent distress, Oriented x3 Respiratory: Diminished, Crackles/rales Cardiovascular: Regular rate/rhythm, Normal S1 S2, No murmurs Gastrointestinal: Normal bowel sounds, Soft and benign, Non-distended, No tenderness Musculoskeletal: No clubbing, No swelling, No tenderness Neurological: Cranial nerves 3-12 intact - Studies Medications List Reviewed: Yes Assessment & Plan - Problems (Diagnosis) (1) Respiratory failure with hypoxia Current Visit: Yes Status: Acute Qualifiers: Chronicity: acute Qualified Code(s): J96.01 - Acute respiratory failure with hypoxia (2) Pneumonia, bacterial Current Visit: Yes Status: Acute (3) Metastatic breast cancer Current Visit: Yes Status: Acute - Plan 1. Continue with IV antibiotics and IV steroids 2. Awaiting sputum and blood culture 3. Repeat chest x-ray 4. CT reveals metastatic disease to the liver and bones. 5. Oncology consultation 6. Continue with nebs as needed 7. O2 per protocol 8. Continue with gentle hydration 9. Repeat labs including CBC and renal function in a.m. 10. GI and DVT prophylaxis Discharge Plan: Home Plan to discharge in: Greater than 2 days - Advance Directives Does patient have a Living Will: Yes Does patient have a Durable POA for Healthcare: No - Code Status/Comfort Care Code Status: Full Code Critical Care: No Time Spent Managing PTS Care (In Minutes): 35
[2020-10-05] MEDS: METHYLPREDNISOLONE 125 MG INJ IV SCH ×2 (12:00→17:07)
[2020-10-05] MEDS: D5W 1,000 ML with NA BICARB 8.4% 100 MEQ IV SCH ×4 (12:17→20:00)
[2020-10-05] MEDS ORDERED: METHYLPREDNISOLONE 125 MG INJ ONE ×2 (12:39→17:21)
[2020-10-05] MEDS: ALBUTEROL 2.5 MG/3 ML NEB SOL NEB SCH ×2 (14:00→19:43)
[2020-10-05] MEDS: IPRATROPIUM BROM 0.5MG/2.5ML NEB SCH ×2 (14:00→19:43)
[2020-10-05] MEDS ORDERED: ALBUTEROL 2.5 MG/3 ML NEB SOL ONE ×2 (14:20→20:03)
[2020-10-05] MEDS ORDERED: IPRATROPIUM BROM 0.5MG/2.5ML ONE ×2 (14:20→20:04)
[2020-10-05] MEDS ORDERED: METHYLPREDNISOLONE 125 MG INJ IV SCH (15:58)
--- NOTE | 2020-10-05 15:59 | P.CNS ---
Date of Consult: 10/05/20 Reason for Consult: Resp failure Primary Care Provider: Dr. Melchor, Dr. Manzanares Chief Complaint: pneumonia, hypoxia History of Present Illness: age 80 hx of breast cancer with mets aw resp failure, COVID neg, Aymmetric infiltrate Allergies Penicillins Allergy (Verified 10/03/20 21:04) Hives Home Medications: Acetaminophen with Codeine [Acetaminophen-Cod #3 Tablet] 1 tab PO TID PRN 10/04/20 Amlodipine [Norvasc] 10 mg PO DAILY 10/04/20 Aspirin 81 mg PO DAILY 10/04/20 Atorvastatin Calcium [Lipitor] 20 mg PO BEDTIME 10/04/20 Buspirone HCl [Buspar] 1.5 tab PO DAILY 10/04/20 Buspirone HCl [Buspar] 10 mg PO DAILY 10/04/20 Cetirizine HCl [Zyrtec] 10 tab PO DAILY 10/04/20 Fluticasone [Flonase 50mcg Nasal [place]] 2 sprays NS DAILY 10/04/20 Levothyroxine [Synthroid] 75 mcg PO [id number] 10/04/20 Losartan Potassium [Cozaar] 1 tab PO DAILY 10/04/20 Losartan Potassium [Cozaar] 100 mg PO DAILY 10/04/20 Omeprazole 20 mg PO DAILY 10/04/20 Palbociclib [Ibrance] 100 mg PO DAILY 10/04/20 Sertraline [Zoloft] 100 mg PO DAILY 10/04/20 - Past Medical/Surgical History Diabetic: No -: Stage IV breast cancer mets to liver, bone -: Hypothyroidism -: Hyperlipidemia -: Depression -: Hysterectomy -: Left hip surgery Psychosocial/ Personal History: Patient lives at home with her , retired - Family History Father Medical History: Heart disease - Social History Alcohol use: No CD- Drugs: No Caffeine use: Yes Place of Residence: Home Review of Systems Respiratory: Cough, Shortness of Breath Physical Examination Temp Pulse Resp BP Pulse Ox 97.8 F 104 H 28 H 117/93 H 91 10/05/20 12:00 10/05/20 12:00 10/05/20 12:00 10/05/20 12:00 10/05/20 12:00 General: Alert, In no apparent distress - Problems (1) Respiratory failure with hypoxia Current Visit: Yes Status: Acute Plan: Age 80with metastatic breast cancer Infiltrates R>L/ Inflam markers a re elevated/covid neg/ BIPA 16/12/ 80% Fio2/ Rad pneumonitis?/ Pneumonia?Eosinophilic pneumonia or poss COVID/ Add steroides Qualifiers: Chronicity: acute Qualified Code(s): J96.01 - Acute respiratory failure with hypoxia
[2020-10-05] MEDS: BUSPIRONE HCL 5 MG TABLET PO SCH (21:00)
[2020-10-05] MEDS: SERTRALINE HCL 100 MG TAB PO SCH (21:00)
[2020-10-05] MEDS: ATORVASTATIN 20 MG TAB PO SCH (21:00)
[2020-10-05] MEDS: JUVEN PACKET PO SCH (21:00)
[2020-10-05] MEDS: LEVOFLOXACIN 750MG/D5W 150 ML IV SCH (21:05)
[2020-10-06] MEDS: METHYLPREDNISOLONE 125 MG INJ IV SCH ×4 (00:02→17:19)
[2020-10-06] MEDS: IPRATROPIUM BROM 0.5MG/2.5ML NEB SCH ×4 (01:30→19:30)
[2020-10-06] MEDS: ALBUTEROL 2.5 MG/3 ML NEB SOL NEB SCH ×4 (01:30→19:30)
[2020-10-06] MEDS: LORazepam 2 MG/ML VIAL IV PRN ×4 (01:48→20:28)
[2020-10-06] MEDS ORDERED: D5W 1,000 ML IV ONE (02:19)
[2020-10-06] MEDS: D5W 1,000 ML with NA BICARB 8.4% 100 MEQ IV SCH ×4 (02:28→18:00)
[2020-10-06] MEDS: LEVOTHYROXINE SOD 0.075 MG TAB PO SCH (06:00)
[2020-10-06 06:29] LABS: Absolute Lymphocytes (CBC) 0.2 K/uL (0.7-4.9); Hematocrit 27.2 % (36.0-45.0); Lymphocytes % 2.3 % (15.3-44.8); MPV 8.8 fL (7.6-11.3); RBC Red Blood Cell Count 2.82 M/uL (3.86-4.86)
[2020-10-06 07:20] LABS: Albumin 2.4 g/dL (3.4-5.0); Alkaline Phosphatase 219 U/L (45-117); BUN Blood Urea Nitrogen 19 mg/dL (7-18); Bicarbonate 25 mmol/L (21-32); Bilirubin Total 0.6 mg/dL (0.2-1.0); Glucose Level 155 mg/dL (74-106); Potassium 3.6 mmol/L (3.5-5.1); Protein, Total 6.9 g/dL (6.4-8.2); Sodium Level 133 mmol/L (136-145)
[2020-10-06 07:21] LABS: Folic Acid, (Folate) 19.1 ng/mL (3.1-17.5); NT PRO-BNP 2550 pg/mL (<450); Phosphorus 1.3 mg/dL (2.5-4.9)
[2020-10-06] MEDS: ENSURE HIGH PROTEIN 237 ML CAN PO SCH ×3 (07:30→16:30)
[2020-10-06] MEDS: LOSARTAN POTASSIUM 50 MG TABLET PO SCH (07:48)
[2020-10-06] MEDS: JUVEN PACKET PO SCH ×2 (07:48→21:00)
[2020-10-06 08:42] LABS: ALT/SGPT 351 U/L (12-78); AST/SGOT 368 U/L (15-37)
[2020-10-06] MEDS: ENOXAPARIN 40 MG/0.4 ML SQ SCH (09:00)
[2020-10-06 11:43] LABS: Blood Morphology Comment NOT SEEN (NOT SEEN); Platelet Estimate ADEQ
--- NOTE | 2020-10-06 15:45 | P.PN ---
Date of Service: 10/06/20 Subjective Patient is still with dyspnea; spoke with family regarding her current clinical status. They do want everything performed. Continue with antibiotic therapy. Review of Systems 10-point ROS is otherwise unremarkable Physical Examination - Vital Signs reviewed - Physical Exam General: Alert, In no apparent distress, Oriented x3 Respiratory: Diminished, Crackles/rales Cardiovascular: Regular rate/rhythm, Normal S1 S2, No murmurs Gastrointestinal: Normal bowel sounds, Soft and benign, Non-distended, No tenderness Musculoskeletal: No clubbing, No swelling, No tenderness Neurological: Cranial nerves 3-12 intact Assessment & Plan - Problems (Diagnosis) (1) Respiratory failure with hypoxia Current Visit: Yes Status: Acute Qualifiers: Chronicity: acute Qualified Code(s): J96.01 - Acute respiratory failure with hypoxia (2) Pneumonia, bacterial Current Visit: Yes Status: Acute (3) Metastatic breast cancer Current Visit: Yes Status: Acute - Plan Continue with plan plan of care as mentioned below: 1. Continue with IV antibiotics and IV steroids 2. Awaiting sputum and blood culture 3. Repeat chest x-ray 4. CT reveals metastatic disease to the liver and bones. 5. Oncology consultation 6. Continue with nebs as needed 7. O2 per protocol 8. Continue with gentle hydration 9. Repeat labs including CBC and renal function in a.m. 10. GI and DVT prophylaxis
[2020-10-06] MEDS: METOPROLOL TARTRATE 5 MG/5 ML INJ IV PRN (15:58)
[2020-10-06] MEDS: LEVOFLOXACIN 750MG/D5W 150 ML IV SCH (20:29)
[2020-10-06] MEDS: SERTRALINE HCL 100 MG TAB PO SCH (21:00)
[2020-10-06] MEDS: ATORVASTATIN 20 MG TAB PO SCH (21:00)
[2020-10-06] MEDS: BUSPIRONE HCL 5 MG TABLET PO SCH (21:00)
[2020-10-07] MEDS: METHYLPREDNISOLONE 125 MG INJ IV SCH ×3 (00:23→13:40)
[2020-10-07] MEDS: LORazepam 2 MG/ML VIAL IV PRN ×5 (00:24→21:45)
[2020-10-07] MEDS: IPRATROPIUM BROM 0.5MG/2.5ML NEB SCH ×3 (01:00→14:15)
[2020-10-07] MEDS: ALBUTEROL 2.5 MG/3 ML NEB SOL NEB SCH ×3 (01:00→14:15)
[2020-10-07] MEDS: ENSURE HIGH PROTEIN 237 ML CAN PO SCH ×3 (04:58→16:30)
[2020-10-07] MEDS: LEVOTHYROXINE SOD 0.075 MG TAB PO SCH (04:58)
[2020-10-07] MEDS: JUVEN PACKET PO SCH ×2 (04:58→21:00)
[2020-10-07] MEDS: D5W 1,000 ML with NA BICARB 8.4% 100 MEQ IV SCH ×4 (05:00→13:40)
[2020-10-07] MEDS: ENOXAPARIN 40 MG/0.4 ML SQ SCH (13:39)
--- NOTE | 2020-10-07 15:30 | P.PN ---
Date of Service: 10/07/20 Subjective Granddaughter had met with Dr. Manzanares, and family is discussing options as patient respiratory status is not really improving much. At this time she remains a full code. Review of Systems 10-point ROS is otherwise unremarkable Physical Examination - Vital Signs reviewed - Physical Exam General: Alert, In no apparent distress, Oriented x3 Respiratory: Diminished, Crackles/rales Cardiovascular: Regular rate/rhythm, Normal S1 S2, No murmurs Gastrointestinal: Normal bowel sounds, Soft and benign, Non-distended, No tenderness Musculoskeletal: No clubbing, No swelling, No tenderness Neurological: Cranial nerves 3-12 intact Assessment & Plan - Problems (Diagnosis) (1) Respiratory failure with hypoxia Current Visit: Yes Status: Acute Qualifiers: Chronicity: acute Qualified Code(s): J96.01 - Acute respiratory failure with hypoxia (2) Pneumonia, bacterial Current Visit: Yes Status: Acute (3) Metastatic breast cancer Current Visit: Yes Status: Acute - Plan Continue with plan plan of care as mentioned below: 1. Continue with IV antibiotics and IV steroids 2. Awaiting sputum and blood culture 3. Repeat chest x-ray 4. CT reveals metastatic disease to the liver and bones. 5. Oncology consultation 6. Continue with nebs as needed 7. O2 per protocol 8. Continue with gentle hydration 9. Repeat labs including CBC and renal function in a.m. 10. GI and DVT prophylaxis
[2020-10-07 16:17] LABS: Absolute Lymphocytes (CBC) 0.1 K/uL (0.7-4.9); Basophils % 0.2 % (0-1.3); Hematocrit 25.4 % (36.0-45.0); Lymphocytes % 2.6 % (15.3-44.8); RBC Red Blood Cell Count 2.68 M/uL (3.86-4.86)
--- NOTE | 2020-10-07 16:32 | P.PN ---
Subjective Date of Service: 10/07/20 Primary Care Provider: Dr. Melchor, Dr. Manzanares Chief Complaint: pneumonia, hypoxia No change patient is unresponsive requiring sedation was on 100% FiO2 Review of Systems is unable to be obtained Physical Examination - Vital Signs Temperature: 97.4 F Blood Pressure: 127/63 Pulse: 100 Respirations: 16 Pulse Ox (%): 97 - Physical Exam General: Unresponsive Respiratory: Clear to auscultation bilaterally, Diminished, Crackles/rales - Studies Medications List Reviewed: Yes Assessment & Plan - Problems (Diagnosis) (1) Respiratory failure with hypoxia Current Visit: Yes Status: Acute Plan: age age 80 metastatic breast cancer admitted with severe pneumonia/will titrate sat to 90% check her ABGs currently she is on BiPAP full face relatives by a bedside liver function tests are improving relatives agreed to Dobhoff discuss with relatives regarding DNR status reduce the dose of IV steroids prognosis poor continue with levofloxacin repeat blood gases patient is mildly anemic Qualifiers: Chronicity: acute Qualified Code(s): J96.01 - Acute respiratory failure with hypoxia
[2020-10-07 16:44] LABS: Albumin 2.2 g/dL (3.4-5.0); Alkaline Phosphatase 215 U/L (45-117); BUN Blood Urea Nitrogen 14 mg/dL (7-18); Bicarbonate 31 mmol/L (21-32); Bilirubin Total 0.4 mg/dL (0.2-1.0); Glucose Level 180 mg/dL (74-106); Protein, Total 6.1 g/dL (6.4-8.2); Sodium Level 134 mmol/L (136-145)
[2020-10-07 16:49] LABS: ALT/SGPT 408 U/L (12-78); AST/SGOT 427 U/L (15-37); Potassium 2.5 mmol/L (3.5-5.1)
[2020-10-07] MEDS ORDERED: KCL 20 MEQ/100 mL IVPB 20 MEQ/100 ML BAG IV SCH (17:00)
[2020-10-07] MEDS: METHYLPREDNISOLONE 40 MG INJ IV SCH (17:00)
[2020-10-07 18:10] LABS: Arterial Blood Carboxyhemoglob 1.2 % (0-1.5); Blood Gas Oxyhemoglobin 92.8 % (94-97); Blood O2 Saturation 95.1 % (92-98.5)
[2020-10-07] MEDS: BUSPIRONE HCL 5 MG TABLET PO SCH (21:00)
[2020-10-07] MEDS: SERTRALINE HCL 100 MG TAB PO SCH (21:00)
[2020-10-07] MEDS: KCL 20 MEQ/100 mL IVPB 20 MEQ/100 ML BAG IV SCH ×2 (21:00→21:45)
[2020-10-07] MEDS: ATORVASTATIN 20 MG TAB PO SCH (21:00)
[2020-10-07] MEDS: LEVOFLOXACIN 750MG/D5W 150 ML IV SCH (21:45)
[2020-10-08] MEDS: LORazepam 2 MG/ML VIAL IV PRN ×4 (01:39→20:18)
[2020-10-08] MEDS: METHYLPREDNISOLONE 40 MG INJ IV SCH ×3 (01:39→17:00)
[2020-10-08] MEDS: D5W 1,000 ML with NA BICARB 8.4% 100 MEQ IV SCH ×6 (01:40→20:51)
[2020-10-08] MEDS ORDERED: MELATONIN 5 MG TABLET PO PRN (04:30)
[2020-10-08 05:42] LABS: BUN Blood Urea Nitrogen 13 mg/dL (7-18); Bicarbonate 33 mmol/L (21-32); Glucose Level 156 mg/dL (74-106); Potassium 3.4 mmol/L (3.5-5.1); Sodium Level 133 mmol/L (136-145)
[2020-10-08] MEDS: LEVOTHYROXINE SOD 0.075 MG TAB PO SCH (06:00)
[2020-10-08] MEDS ORDERED: HALOPERIDOL LACT 5 MG/ML INJ IV ONE (06:17)
[2020-10-08] MEDS: KCL 20 MEQ/100 mL IVPB 20 MEQ/100 ML BAG IV SCH ×2 (06:29→09:51)
[2020-10-08] MEDS: ENSURE HIGH PROTEIN 237 ML CAN PO SCH ×3 (07:30→16:30)
--- NOTE | 2020-10-08 07:33 | RAD REPORT ---
EXAM DESCRIPTION: RAD - Chest Single View - 10/07/2020 10:39 pm CLINICAL HISTORY: Pneumonia Technical malfunctions precluded more timely dictation. COMPARISON: Portable October 05 CT chest October 03 TECHNIQUE: AP portable chest image was obtained 10/07/2020 10:39 pm . FINDINGS: Opacification in the right upper lobe has increased possibly due to atelectasis rather narendra n progressive pneumonia. Right upper lobe bronchus or perihilar obstructive process would be possible given the patient's history. Right hemithorax volume is reduced compared to the October 05 study. Bilateral interstitial and alveol ar opacities are similar to slightly improved. Heart size normal. Pulmonary vasculature within normal limits No measurable pleural effusion and no p neumothorax. IMPRESSION: Overall bilateral lung parenchymal opacification is similar to slightly improved from . Right upper lobe opacification has increased. This may be due to atelectasis rather than progressive pneumonia. Obstructive atelectasis is possible given the patient's malignancy history.
--- NOTE | 2020-10-08 07:34 | RAD REPORT ---
EXAM DESCRIPTION: RAD - Abdomen 1 View (KUB) - 10/07/2020 10:40 pm CLINICAL HISTORY: Dobhoff placement Imaging system technical malfunction and telephone malfunction precluded more timely reporting. COMPARISON: Chest Single View dated 10/07/2020 FINDINGS: KUB imaging shows no visible feeding tube. Respiratory motion limits bowel assessment. No new or progressive bowel dilatation. No free air identified. No suspicious calcifications. IMPRESSION: KUB examination shows no identifiable feeding tube.
[2020-10-08] MEDS: JUVEN PACKET PO SCH ×2 (09:00→20:51)
[2020-10-08] MEDS: ENOXAPARIN 40 MG/0.4 ML SQ SCH (09:00)
[2020-10-08 11:25] LABS: Absolute Lymphocytes (CBC) 0.2 K/uL (0.7-4.9); Basophils % 0.2 % (0-1.3); Hematocrit 25.1 % (36.0-45.0); Lymphocytes % 3.8 % (15.3-44.8); MPV 8.8 fL (7.6-11.3); RBC Red Blood Cell Count 2.65 M/uL (3.86-4.86)
[2020-10-08 11:57] LABS: AST/SGOT 259 U/L (15-37); Albumin 2.2 g/dL (3.4-5.0); Alkaline Phosphatase 219 U/L (45-117); BUN Blood Urea Nitrogen 13 mg/dL (7-18); Bicarbonate 31 mmol/L (21-32); Bilirubin Total 0.4 mg/dL (0.2-1.0); Glucose Level 150 mg/dL (74-106); NT PRO-BNP 2577 pg/mL (<450); Potassium 3.6 mmol/L (3.5-5.1); Sodium Level 134 mmol/L (136-145)
[2020-10-08 12:01] LABS: ALT/SGPT 359 U/L (12-78)
--- NOTE | 2020-10-08 14:35 | RAD REPORT ---
EXAM DESCRIPTION: RAD - Abdomen 1 View (KUB) - 10/08/2020 2:09 pm CLINICAL HISTORY: dobhoff placement COMPARISON: Abdomen 1 View (KUB) dated 10/07/2020; Abdomen Pelvis W Contrast dated 10/03/2020 FINDINGS: Nonobstructive bowel gas pattern. No acute osseous abnormality.Widespread bilateral airspa ce disease.No abnormal calcifications. The weighted feeding tube angulated cephalad in the distal eso phagus with tip terminating overlying the esophagus. IMPRESSION: The weighted feeding tube coils in the distal esophagus and should be repositioned.
[2020-10-08] MEDS: BUSPIRONE HCL 5 MG TABLET PO SCH (20:51)
[2020-10-08] MEDS: ATORVASTATIN 20 MG TAB PO SCH (20:52)
[2020-10-08] MEDS: SERTRALINE HCL 100 MG TAB PO SCH (20:52)
[2020-10-08] MEDS: levoFLOXacin 750 MG TAB PO SCH (20:53)
[2020-10-09] MEDS: METHYLPREDNISOLONE 40 MG INJ IV SCH ×3 (00:33→18:35)
[2020-10-09] MEDS: D5W 1,000 ML with NA BICARB 8.4% 100 MEQ IV SCH ×4 (05:00→09:17)
[2020-10-09 05:43] LABS: BUN Blood Urea Nitrogen 10 mg/dL (7-18); Bicarbonate 31 mmol/L (21-32); Glucose Level 192 mg/dL (74-106); Potassium 3.1 mmol/L (3.5-5.1); Sodium Level 135 mmol/L (136-145)
[2020-10-09] MEDS: LEVOTHYROXINE SOD 0.075 MG TAB PO SCH (06:00)
[2020-10-09] MEDS: ENSURE HIGH PROTEIN 237 ML CAN PO SCH ×3 (07:30→16:30)
[2020-10-09] MEDS: JUVEN PACKET PO SCH ×2 (09:00→21:00)
[2020-10-09] MEDS ORDERED: POTASSIUM CL 40 MEQ in NA CHLORIDE 0.9% 500 ML IV SCH (09:00)
[2020-10-09] MEDS: ENOXAPARIN 40 MG/0.4 ML SQ SCH (09:16)
[2020-10-09] MEDS ORDERED: ACETAMINOPHEN 650MG/RECT SUPP PR ONE (12:22)
[2020-10-09] MEDS: METOPROLOL TARTRATE 5 MG/5 ML INJ IV PRN (12:39)
--- NOTE | 2020-10-09 12:41 | P.PN ---
Date of Service: 10/08/20 Subjective Family meeting with all the children at 6pm; decision for DNR; they still wanted to treat pneumonia aggressively and want nutrition; unable to get Dobhoff per nurses so will get PPN started; Broaden antibiotic coverage with Vanc; Review of Systems unable to obtain Physical Examination - Vital Signs reviewed - Physical Exam General: lethargic and confused; Respiratory: Diminished, Crackles/rales Cardiovascular: Regular rate/rhythm, Normal S1 S2, No murmurs Gastrointestinal: Normal bowel sounds, Soft and benign, Non-distended, No tenderness Musculoskeletal: No clubbing, No swelling, No tenderness Neurological: Cranial nerves 3-12 intact Assessment & Plan - Problems (Diagnosis) (1) Respiratory failure with hypoxia Current Visit: Yes Status: Acute Qualifiers: Chronicity: acute Qualified Code(s): J96.01 - Acute respiratory failure with hypoxia (2) Pneumonia, bacterial Current Visit: Yes Status: Acute (3) Metastatic breast cancer with liver mets Current Visit: Yes Status: Acute - Plan Continue with plan plan of care as mentioned below: 1. Continue with IV antibiotics and IV steroids 2. Awaiting sputum and blood culture 3. Repeat chest x-ray 4. CT reveals metastatic disease to the liver and bones. 5. Oncology consultation appreciated 6. Continue with nebs as needed 7. O2 per protocol 8. Continue with gentle hydration 9. Repeat labs including CBC and renal function in a.m. 10. GI and DVT prophylaxis
[2020-10-09] MEDS ORDERED: FUROSEMIDE 20 MG/ 2ML VIAL IV ONE (12:43)
[2020-10-09] MEDS ORDERED: AA 4.25 %/D5W/ELECTROLYTES 2,000 ML, Lipids 20% 250 ML with MULTIVITAMINS INJ 10 ML IV SCH ×3 (14:00)
[2020-10-09] MEDS: AA 4.25 %/D5W/ELECTROLYTES 2,000 ML, Lipids 20% 250 ML with MULTIVITAMINS INJ 10 ML IV SCH ×3 (14:39)
[2020-10-09] MEDS: VANCOMYCIN 1.25 GM in NA CHLORIDE 0.9% 250 ML IVPB SCH ×2 (14:39→21:56)
--- NOTE | 2020-10-09 14:40 | RAD REPORT ---
EXAM DESCRIPTION: RAD - Chest Single View - 10/09/2020 2:27 pm CLINICAL HISTORY: pneumonia Chest pain. COMPARISON: Abdomen 1 View (KUB) dated 10/08/2020; Abdomen 1 View (KUB) dated 10/07/2020; Chest Single View dated 10/07/2020; Chest Single View dated 10/05/2020 FINDINGS: Portable technique limits examination quality. Since 10/07/2020, mild worsening in bilateral pulmonary opacities are noted. The heart is normal in s ize. No displaced fractures. IMPRESSION: Mild worsening in lung aeration is seen since comparative study.
[2020-10-09] MEDS ORDERED: PANTOPRAZOLE 40 MG INJ IVP ONE (19:35)
[2020-10-09] MEDS ORDERED: SODIUM CHLORIDE 0.9% 10ML INJ IV PRN (19:35)
[2020-10-09] MEDS: BUSPIRONE HCL 5 MG TABLET PO SCH (21:00)
[2020-10-09] MEDS: levoFLOXacin 750 MG TAB PO SCH (21:00)
[2020-10-09] MEDS ORDERED: KCL 20 MEQ/100 mL IVPB 20 MEQ/100 ML BAG IV SCH (21:00)
[2020-10-09] MEDS: SERTRALINE HCL 100 MG TAB PO SCH (21:00)
[2020-10-09] MEDS: ATORVASTATIN 20 MG TAB PO SCH (21:00)
[2020-10-09] MEDS ORDERED: Levofloxacin 750mg IV 750 MG/150 ML BAG IV SCH (21:30)
[2020-10-09] MEDS: LORazepam 2 MG/ML VIAL IV PRN (21:54)
[2020-10-10] MEDS: METOPROLOL TARTRATE 5 MG/5 ML INJ IV PRN ×3 (00:01→20:52)
[2020-10-10] MEDS: METHYLPREDNISOLONE 40 MG INJ IV SCH ×3 (00:02→17:19)
[2020-10-10 05:14] LABS: Absolute Lymphocytes (CBC) 0.1 K/uL (0.7-4.9); Basophils % 0.1 % (0-1.3); Hematocrit 31.2 % (36.0-45.0); Lymphocytes % 1.7 % (15.3-44.8); RBC Red Blood Cell Count 3.28 M/uL (3.86-4.86)
[2020-10-10 05:45] LABS: ALT/SGPT 229 U/L (12-78); AST/SGOT 90 U/L (15-37); Alkaline Phosphatase 226 U/L (45-117); BUN Blood Urea Nitrogen 15 mg/dL (7-18); Bicarbonate 31 mmol/L (21-32); Bilirubin Total 0.4 mg/dL (0.2-1.0); Glucose Level 188 mg/dL (74-106); Potassium 3.2 mmol/L (3.5-5.1); Protein, Total 6.4 g/dL (6.4-8.2); Sodium Level 133 mmol/L (136-145)
[2020-10-10 05:46] LABS: Albumin 2.3 g/dL (3.4-5.0); Magnesium 1.7 mg/dL (1.8-2.4)
[2020-10-10 05:48] LABS: Blood Morphology Comment NOTED (NOT SEEN); Platelet Estimate ADEQ; Polychromasia 1+
[2020-10-10] MEDS: LEVOTHYROXINE SOD 0.075 MG TAB PO SCH (06:00)
--- NOTE | 2020-10-10 06:34 | P.PN ---
Date of Service: 10/09/20 Subjective No significant changes. Patient's clinical symptoms have not really improved significantly. Family is contemplating hospice. They will see if family can come visit in the morning. After family members visit. They will probably proceed with hospice care and try to see if patient can make at home. At this point, will continue with aggressive plan of care to try to get her better and hopefully she improves but if she is not then we will proceed with plan as mentioned above. Review of Systems unable to obtain Physical Examination - Vital Signs reviewed - Physical Exam General: lethargic and confused; Respiratory: Diminished, Crackles/rales Cardiovascular: Regular rate/rhythm, Normal S1 S2, No murmurs Gastrointestinal: Normal bowel sounds, Soft and benign, Non-distended, No tenderness Musculoskeletal: No clubbing, No swelling, No tenderness Neurological: Cranial nerves 3-12 intact Assessment & Plan - Problems (Diagnosis) (1) Respiratory failure with hypoxia Current Visit: Yes Status: Acute Qualifiers: Chronicity: acute Qualified Code(s): J96.01 - Acute respiratory failure with hypoxia (2) Pneumonia, bacterial Current Visit: Yes Status: Acute (3) Metastatic breast cancer with liver mets Current Visit: Yes Status: Acute - Plan Continue with plan plan of care as mentioned below: 1. Continue with IV antibiotics and IV steroids; continue with neb treatments 2. Cultures have been negative 3. Repeat chest x-ray 4. CT reveals metastatic disease to the liver and bones. 5. Oncology consultation appreciated; poor prognosis 6. Continue with nebs as needed 7. O2 per protocol-continue with BiPAP support 8. Continue with gentle hydration 9. Repeat labs including CBC and renal function in a.m. 10. GI and DVT prophylaxis
[2020-10-10] MEDS: ENSURE HIGH PROTEIN 237 ML CAN PO SCH ×3 (07:30→16:30)
[2020-10-10] MEDS ORDERED: MAGNESIUM SULFATE 1 gm IVPB 1 GM/100 ML BAG IV ONE (09:00)
[2020-10-10] MEDS: JUVEN PACKET PO SCH ×2 (09:00→20:54)
[2020-10-10] MEDS ORDERED: POTASSIUM CL 40 MEQ in NA CHLORIDE 0.9% 500 ML IV SCH (09:00)
--- NOTE | 2020-10-10 09:09 | RAD REPORT ---
EXAM DESCRIPTION: RAD - Chest Single View - 10/10/2020 5:16 am CLINICAL HISTORY: pneumonia Chest pain. COMPARISON: Chest Single View dated 10/09/2020; Abdomen 1 View (KUB) dated 10/08/2020; Abdomen 1 View (KUB) dated 10/07/2020; Chest Single View dated 10/07/2020 FINDINGS: Portable technique limits examination quality. Extensive bilateral pulmonary opacities are seen, unchanged since comparative study. Heart is upper l imit normal in size No displaced fractures. IMPRESSION: Stable chest since comparative study.
[2020-10-10] MEDS: VANCOMYCIN 1.25 GM in NA CHLORIDE 0.9% 250 ML IVPB SCH ×2 (09:55→22:54)
[2020-10-10] MEDS: ENOXAPARIN 40 MG/0.4 ML SQ SCH (09:55)
[2020-10-10] MEDS ORDERED: ACETAMINOPHEN 650MG/RECT SUPP PR ONE (12:09)
[2020-10-10] MEDS: LORazepam 2 MG/ML VIAL IV PRN ×2 (12:24→20:52)
[2020-10-10] MEDS ORDERED: Meropenem 500 MG/100 ML BAG IV SCH (13:45)
[2020-10-10] MEDS: IPRATROPIUM BROM 0.5MG/2.5ML NEB SCH ×2 (14:00→19:45)
[2020-10-10] MEDS: ALBUTEROL 2.5 MG/3 ML NEB SOL NEB SCH ×2 (14:00→19:45)
[2020-10-10] MEDS: AA 4.25 %/D5W/ELECTROLYTES 2,000 ML, Lipids 20% 250 ML with MULTIVITAMINS INJ 10 ML IV SCH ×3 (17:19)
[2020-10-10] MEDS: Meropenem 1 GM/100 ML BAG IV SCH (17:19)
[2020-10-10] MEDS: SERTRALINE HCL 100 MG TAB PO SCH (20:54)
[2020-10-10] MEDS: BUSPIRONE HCL 5 MG TABLET PO SCH (20:54)
[2020-10-10] MEDS: ATORVASTATIN 20 MG TAB PO SCH (20:54)
[2020-10-10] MEDS ORDERED: FUROSEMIDE 20 MG/ 2ML VIAL IV ONE (21:00)
[2020-10-11] MEDS: METHYLPREDNISOLONE 40 MG INJ IV SCH ×2 (00:32→08:16)
[2020-10-11] MEDS: Meropenem 1 GM/100 ML BAG IV SCH ×2 (00:32→08:16)
[2020-10-11] MEDS: LORazepam 2 MG/ML VIAL IV PRN ×2 (00:33→06:09)
[2020-10-11] MEDS ORDERED: HYDRALAZINE HCL 20 MG/ML VIAL IV PRN (00:47)
[2020-10-11] MEDS: ALBUTEROL 2.5 MG/3 ML NEB SOL NEB SCH ×3 (02:20→14:00)
[2020-10-11] MEDS: IPRATROPIUM BROM 0.5MG/2.5ML NEB SCH ×3 (02:20→14:50)
[2020-10-11] MEDS: LEVOTHYROXINE SOD 0.075 MG TAB PO SCH (06:00)
[2020-10-11 06:52] LABS: BUN Blood Urea Nitrogen 24 mg/dL (7-18); Bicarbonate 28 mmol/L (21-32); Glucose Level 186 mg/dL (74-106); Magnesium 1.9 mg/dL (1.8-2.4); Potassium 3.4 mmol/L (3.5-5.1); Sodium Level 132 mmol/L (136-145)
[2020-10-11] MEDS: ENSURE HIGH PROTEIN 237 ML CAN PO SCH ×3 (07:30→15:21)
[2020-10-11] MEDS: JUVEN PACKET PO SCH (07:34)
[2020-10-11] MEDS: KCL 20 MEQ/100 mL IVPB 20 MEQ/100 ML BAG IV SCH ×2 (08:00→12:33)
[2020-10-11] MEDS: VANCOMYCIN 1.25 GM in NA CHLORIDE 0.9% 250 ML IVPB SCH (08:16)
[2020-10-11] MEDS: ENOXAPARIN 40 MG/0.4 ML SQ SCH (08:16)
[2020-10-11] MEDS ORDERED: KCL 20 MEQ/100 mL IVPB 20 MEQ/100 ML BAG IV SCH (09:00)
--- NOTE | 2020-10-11 09:36 | P.PN ---
Date of Service: 10/11/20 Subjective Patient is doing about the same with no new complaints. Prognosis is poor. Family coming to visit. Review of Systems unable to obtain Physical Examination - Vital Signs reviewed - Physical Exam General: lethargic and confused; Respiratory: Diminished, Crackles/rales Cardiovascular: Regular rate/rhythm, Normal S1 S2, No murmurs Gastrointestinal: Normal bowel sounds, Soft and benign, Non-distended, No tenderness Musculoskeletal: No clubbing, No swelling, No tenderness Neurological: Cranial nerves 3-12 intact Assessment & Plan - Problems (Diagnosis) (1) Respiratory failure with hypoxia Current Visit: Yes Status: Acute Qualifiers: Chronicity: acute Qualified Code(s): J96.01 - Acute respiratory failure with hypoxia (2) Pneumonia, bacterial Current Visit: Yes Status: Acute (3) Metastatic breast cancer with liver mets Current Visit: Yes Status: Acute - Plan Continue with plan plan of care as mentioned below: 1. Continue with IV antibiotics and IV steroids; continue with neb treatments; broaden coverage per family request 2. Cultures have been negative; pneumonia not improving 3. Repeat chest x-ray in a.m. as pneumonia continues to worsen 4. CT reveals metastatic disease to the liver and bones. 5. Oncology consultation appreciated; poor prognosis 6. Continue with nebs as needed 7. O2 per protocol-continue with BiPAP support 8. Continue with PPN 9. Repeat labs 10. GI and DVT prophylaxis
--- NOTE | 2020-10-11 10:35 | RAD REPORT ---
EXAM DESCRIPTION: RAD - Chest Single View - 10/11/2020 10:25 am CLINICAL HISTORY: pneumonia COMPARISON: Chest Single View dated 10/10/2020; Chest Single View dated 10/09/2020; Abdomen 1 View (KU B) dated 10/08/2020; Abdomen 1 View (KUB) dated 10/07/2020 FINDINGS: Severe widespread bilateral airspace disease, similar to 10/10/2020. Cardiomegaly.No acute osseous abnormality. No significant pleural effusions or pneumothorax. Surgical clips in the right a xilla. IMPRESSION: Severe bilateral airspace disease without substantial change compared with 10/10/2020.
[2020-10-11] MEDS: AA 4.25 %/D5W/ELECTROLYTES 2,000 ML, Lipids 20% 250 ML with MULTIVITAMINS INJ 10 ML IV SCH ×3 (14:00)
[2020-10-11 15:57] VITALS: O2SAT 85
[2020-10-11 17:21] VITALS: BP 145/75; TEMP 98.1
[2020-10-12] MEDS ORDERED: VANCOMYCIN 1.25 GM in NA CHLORIDE 0.9% 250 ML IVPB SCH (04:00)
--- NOTE | 2020-10-15 06:38 | P.DS ---
Discharge Date: 10/11/20 Primary Care Provider: Dr. Melchor, Dr. Manzanares Disposition: HOSPICE-HOME Discharge Condition: CRITICAL Reason for Admission: pneumonia, hypoxia - Problems (1) Respiratory failure with hypoxia Status: Acute Qualifiers: Chronicity: acute Qualified Code(s): J96.01 - Acute respiratory failure with hypoxia (2) Pneumonia, bacterial Status: Acute (3) Metastatic breast cancer Status: Acute Brief History of Present Illness: patient is an 80-year-old female with history of breast cancer with metastasis to liver/bile duct/bone, hypothyroidism, hyperlipidemia, depression presents emerged department for shortness of breath, hypoxia. Patient presented to her oncologist for radiation therapy and was noted to be hypoxic upon arrival. Patient was sent to the ER for evaluation. Patient was evaluated in the emergency department labs were significant for white blood cell count 7 hemoglobin 10.6 medical 31.9 D-dimer 2486 sodium 134 GFR 73 glucose 119 ferritin 468.2 AST 438 ALT 325 alk phos 158 C-reactive protein 169 BNP 630 Covid test negative. Chest x-ray demonstrated asymmetric pulmonary opacities greater on the right, CTA chest with extensive finding suspicious for COVID-19 greater on the right no sign of PE CT abdomen pelvis with several small low-density liver lesions present which are nonspecific recommend follow-up MRI liver protocol for further evaluation, bony metastatic disease present with pathological compression fractures at the thoracolumbar junction T12 fracture resulting in moderate severity canal stenosis, family/patient aware of this previously. ED (admit for further evaluation of hypoxia, pneumonia. Hospital Course: Patient's clinical symptoms continue to deteriorate. Even with advanced antibiotic therapy. Family stated that they wanted to go home as her mother did not want to in the hospital. Family decided to proceed with hospice care. Vital Signs/Physical Exam: Temp Pulse Resp BP Pulse Ox 98.1 F 116 H 32 H 145/75 H 86 L 10/11/20 16:00 10/11/20 16:00 10/11/20 16:00 10/11/20 16:00 10/11/20 16:00 General: Unresponsive Laboratory Data at Discharge: WBC 8.90 K/uL (4.3-10.9) D 10/10/20 04:52 Hgb 10.5 g/dL (12.0-15.0) L 10/10/20 04:52 Hct 31.2 % (36.0-45.0) L D 10/10/20 04:52 Plt Count 165 K/uL (152-406) D 10/10/20 04:52 PT 14.3 SECONDS (9.5-12.5) H 10/03/20 15:27 INR 1.24 10/03/20 15:27 Sodium 132 mmol/L (136-145) L 10/11/20 05:53 Potassium 3.4 mmol/L (3.5-5.1) L 10/11/20 05:53 BUN 24 mg/dL (7-18) H 10/11/20 05:53 Creatinine 0.31 mg/dL (0.55-1.3) L 10/11/20 05:53 Glucose 186 mg/dL (74-106) H 10/11/20 05:53 Phosphorus 1.3 mg/dL (2.5-4.9) L 10/06/20 05:52 Magnesium 1.9 mg/dL (1.8-2.4) 10/11/20 05:53 Total Bilirubin 0.4 mg/dL (0.2-1.0) 10/10/20 04:52 AST 90 U/L (15-37) H D 10/10/20 04:52 ALT 229 U/L (12-78) H D 10/10/20 04:52 Alkaline Phosphatase 226 U/L (45-117) H 10/10/20 04:52 Triglycerides 62 mg/dL (<150) 10/04/20 03:14 Cholesterol 117 mg/dL (<200) 10/04/20 03:14 HDL Cholesterol 37 mg/dL (40-60) L 10/04/20 03:14 Cholesterol/HDL Ratio 3.16 10/04/20 03:14 Home Medications: Acetaminophen with Codeine [Acetaminophen-Cod #3 Tablet] 1 tab PO TID PRN 10/04/20 Amlodipine [Norvasc] 10 mg PO DAILY 10/04/20 Aspirin 81 mg PO DAILY 10/04/20 Atorvastatin Calcium [Lipitor] 20 mg PO BEDTIME 10/04/20 Buspirone HCl [Buspar] 1.5 tab PO DAILY 10/04/20 Buspirone HCl [Buspar] 10 mg PO DAILY 10/04/20 Cetirizine HCl [Zyrtec] 10 tab PO DAILY 10/04/20 Fluticasone [Flonase 50mcg Nasal [place]] 2 sprays NS DAILY 10/04/20 Levothyroxine [Synthroid] 75 mcg PO [id number] 10/04/20 Losartan Potassium [Cozaar] 1 tab PO DAILY 10/04/20 Losartan Potassium [Cozaar] 100 mg PO DAILY 10/04/20 Omeprazole 20 mg PO DAILY 10/04/20 Palbociclib [Ibrance] 100 mg PO DAILY 10/04/20 Sertraline [Zoloft] 100 mg PO DAILY 10/04/20 Physician Discharge Instructions: PROBLEM: Hypoxia GOAL: Clear understanding of disease process INSTRUCTIONS: Ok to discharge home to hospice care Contact [facility] Hospice at time of arrival to home Call [phone] for any questions regarding hospital stay Diet: As tolerated Activity: As tolerated [facility] Services Needed: Hospice Name of Company: [facility] Hospice Date or Referral: IMMUNIZATION Influenza Vaccine Indicated: Influenza Vaccine Given: Date Given: Pneumonia Vaccine Indicated: No Pneumonia Vaccine Given: Date Given: Followup: Carina Melchor [Primary Care Provider] - Time spent managing pt's care (in minutes): 45
== END 2020-10-11 19:35 | disposition hospice, home (50) | DRG 193 ==
LOC: ER 14:11 → ERHOLD 18:54 → 2ND 10-05 19:21
PROVIDERS: ADMIT Hospitalist; ATTEND Hospitalist
DX: J15.9 Unspecified bacterial pneumonia (principal); J96.01 Acute respiratory failure with hypoxia; C78.7 Secondary malignant neoplasm of liver and intrahepatic bile duct; C79.51 Secondary malignant neoplasm of bone; M48.55XA Collapsed vertebra, not elsewhere classified, thoracolumbar region, initial encounter for fracture; C50.919 Malignant neoplasm of unspecified site of unspecified female breast; E03.9 Hypothyroidism, unspecified; E78.5 Hyperlipidemia, unspecified; Z66 Do not resuscitate; Z20.822 Contact with and (suspected) exposure to COVID-19; Z88.0 Allergy status to penicillin
CPT/HCPCS: 36415; 71045; 71275; 74018; 74177; 76705; 80048; 80053; 80061; 80076; 80202; 81003; 82140; 82607; 82728; 82746; 82805; 82947; 83605; 83735; 83880; 84100; 84132; 84145; 84439; 84443; 84484; 85025; 85379; 85610; 86140; 87040; 87804; 93005; 93970; 94010; 94640; 94660; 94760; 96374; 96375; 99285; C9113; J0360; J1630; J1650; J1940; J2185; J2920; J2930; J3370; J3475; J3480; J7030; J7040; J7050; P9047; Q9967; U0003